=== PATIENT | female | born 1995 | race Caucasian/White ===

== ENCOUNTER 2017-02-17 17:14 | Emergency (ER) | payer OTHER | END 2017-02-17 18:10 | disposition home or self-care (01) | LOC: ER1 17:14 | DX: R21 Rash and other nonspecific skin eruption (principal); R00.0 Tachycardia, unspecified | CPT/HCPCS: 99282; Q0163 ==

== ENCOUNTER 2020-12-06 12:34 | Emergency (ER) | payer OTHER ==
[~2020-12-06 12:34] MED LIST: ANTIVERT 25MG T25 MG PO
== END 2020-12-06 14:25 | disposition home or self-care (01) ==
LOC: ER1 12:34
DX: S71.131A Puncture wound without foreign body, right thigh, initial encounter (principal); Z23 Encounter for immunization; W34.00XA Accidental discharge from unspecified firearms or gun, initial encounter
CPT/HCPCS: 73552; 90471; 90715; 99283